=== PATIENT | male | born 1985 | race Caucasian/White ===

== ENCOUNTER 2016-07-30 10:07 | Emergency (ER) | payer OTHER ==
[~2016-07-30] VITALS: Ht 172.7 cm; Wt 87.0 kg
[~2016-07-30 10:07] MED LIST: DIVALPROEX SOD250 MG PO; PRAZOSIN HCL2 MG PO; ZANAFLEX4 M2 PO
[2016-07-30 11:16] LABS: HEMOGLOBIN 15.5 g/dl (14.0-18.0); IMMATURE GRANULOCYTES 0.2 % (0.0-1.0); MEAN CELL VOLUME 80.9 fL CALC (80.0-100.0); MEAN CORPUSCULAR HGB 28.5 pG CALC (26.0-32.0); MEAN CORPUSCULAR HGB CONC 35.2 g/L CALC (32.0-36.0); NEUT# 8.53 thou/uL (1.82-7.42); RED BLOOD COUNT 5.44 mill/uL (4.70-6.10); RED CELL DISTRI WIDTH 12.1 % (11.5-15.5)
[2016-07-30 11:18] LABS: ALBUMIN 4.5 g/dL (3.2-5.0); ALKALINE PHOSPHATASE 45 u/l (38-126); AMYLASE 51 u/l (30-110); ANION GAP 17 (6-22 (CALC)); BILIRUBIN, TOTAL 0.9 mg/dL (0.0-1.4); BUN 26 mg/dL (9-20); BUN/CREATININE RATIO 28 (12-20 (CALC)); CALCIUM 9.1 mg/dL (8.4-10.2); CARBON DIOXIDE 25 mmol/l (22-30); CHLORIDE 106 mmol/l (95-108); GFR > 60 ML/MIN (>=60 (CALC)); GFR FOR AFR.AMER. > 60 ML/MIN (>=60 (CALC)); GLUCOSE 106 mg/dL (75-110); LIPASE 56 u/l (23-300); POTASSIUM 4.3 mmol/l (3.5-5.1); SGOT/AST 20 u/l (17-59); SGPT/ALT 44 u/l (21-72); SODIUM 144 mmol/l (137-146); TOTAL PROTEIN 7.6 g/dL (6.3-8.2)
[2016-07-30 11:30] LABS: MYOGLOBIN 21 ng/mL (0 - 121)
[2016-07-30 12:57] LABS: C. DIFFICILE TOXIN A&B NEGATIVE (NEGATIVE)
[2016-07-30] MEDS ORDERED: ZOFRAN4 MG/TAB PO (13:32)
[2016-07-30 13:36] VITALS: BP 117/65
== END 2016-07-30 13:37 | disposition home or self-care (01) | DRG 392 ==
LOC: ED 10:07
PROVIDERS: Emergency Medicine
DX: K52.9 Noninfective gastroenteritis and colitis, unspecified (principal); K92.0 Hematemesis; R06.02 Shortness of breath
CPT/HCPCS: Q9967

== ENCOUNTER 2019-07-29 | Emergency (ER) | payer OTHER ==
[~2019-07-29] MED LIST changes: +ZOFRAN4 MG/TAB PO
[2019-07-29] MEDS ORDERED: WELLBUTRIN100 M2 PO (13:17)
[2019-07-29] MEDS ORDERED: GABAPENTIN100 MG PO (13:18)
[2019-07-29] MEDS ORDERED: ROBITUSSIN AC10 ML PO (14:45)
[2019-07-29] MEDS ORDERED: CEPHALEXIN500 MG PO (14:50)
== END 2019-07-29 14:57 | disposition home or self-care (01) | DRG 153 ==
DX: J06.9 Acute upper respiratory infection, unspecified (principal); B34.9 Viral infection, unspecified